=== PATIENT | male | born 1965 | race Caucasian/White ===

== ENCOUNTER 2024-05-08 07:49 | Emergency (ER) | payer OTHER ==
[~2024-05-08] VITALS: Ht 170.2 cm; Wt 99.8 kg
[2024-05-08 07:55] VITALS: TEMP 98.3
[2024-05-08] MEDS: KETOROLAC TROMETHAMINE 30 MG/ML VIAL IV STA (08:25)
[2024-05-08] MEDS: CYCLOBENZAPRINE HCL 10 MG TAB PO ONE (08:25)
[2024-05-08] MEDS: HYDROCODONE/APAP 5MG-325MG TAB PO ONE (09:55)
[2024-05-08] MEDS ORDERED: CYCLOBENZAPRINE10 MG PO (12:12)
[2024-05-08 12:45] VITALS: PULSE 50; RESP 16; O2SAT 97
== END 2024-05-08 12:42 | disposition home or self-care (01) ==
LOC: ER 08:07 → EDBD 08:07 → ER 12:42
DX: M79.621 Pain in right upper arm (principal); M54.14 Radiculopathy, thoracic region; R20.0 Anesthesia of skin; R20.2 Paresthesia of skin; I10 Essential (primary) hypertension; E78.5 Hyperlipidemia, unspecified; F41.9 Anxiety disorder, unspecified; Z86.718 Personal history of other venous thrombosis and embolism
CPT/HCPCS: 72040; 72070; 73030; 93005; 99283; J1885